=== PATIENT | male | born 1985 | race African-American/Black ===

== ENCOUNTER 2016-12-23 07:45 | Emergency (ER) | payer MEDICAID ==
[~2016-12-23] VITALS: Ht 175.3 cm; Wt 81.0 kg
[2016-12-23 08:03] VITALS: BP 136/65
== END 2016-12-23 08:47 | disposition home or self-care (01) ==
LOC: EMS 07:47
DX: B35.6 Tinea cruris (principal); F17.210 Nicotine dependence, cigarettes, uncomplicated; F19.90 Other psychoactive substance use, unspecified, uncomplicated
CPT/HCPCS: 99283; 99406

== ENCOUNTER 2017-01-19 19:37 | Emergency (ER) | payer MEDICAID ==
[~2017-01-19] VITALS: Ht 175.3 cm; Wt 88.2 kg
[2017-01-19] MEDS ORDERED: IBUPROFEN 800 MG TABLET PO ONE (20:15)
[2017-01-19] MEDS ORDERED: LIDOCAINE HCL BUFFERED 1% W/EPI 1:100,000 20 ML VIAL INJ ONE (20:15)
[2017-01-19] MEDS ORDERED: SULFAMETHOX/TRIMETH DS 800-160 MG/TABLET PO ONE (20:15)
[2017-01-19 21:59] VITALS: BP 118/69
== END 2017-01-19 22:12 | disposition home or self-care (01) ==
LOC: EMS 19:40
DX: L02.421 Furuncle of right axilla (principal); F17.210 Nicotine dependence, cigarettes, uncomplicated
CPT/HCPCS: 10060; 99283; J3490

== ENCOUNTER 2017-05-26 20:44 | Emergency (ER) | payer SELFPAY ==
[~2017-05-26] VITALS: Ht 175.3 cm; Wt 86.0 kg
[2017-05-26] MEDS ORDERED: LIDOCAINE HCL 1% 10 ML VIAL INJ ONE (21:15)
[2017-05-26] MEDS ORDERED: SULFAMETHOX/TRIMETH DS 800-160 MG/TABLET PO ONE (21:15)
[2017-05-26] MEDS ORDERED: IBUPROFEN 800 MG TABLET PO ONE (21:15)
[2017-05-26] MEDS ORDERED: POVIDONE-IODINE 10% 15 ML SOLUTION UD TP ONE (21:15)
[2017-05-26 21:18] VITALS: BP 142/60
== END 2017-05-26 21:48 | disposition home or self-care (01) ==
LOC: EMS 20:44
DX: L02.416 Cutaneous abscess of left lower limb (principal); S70.262A Insect bite (nonvenomous), left hip, initial encounter; F12.90 Cannabis use, unspecified, uncomplicated; F16.90 Hallucinogen use, unspecified, uncomplicated; F17.210 Nicotine dependence, cigarettes, uncomplicated; W57.XXXA Bitten or stung by nonvenomous insect and other nonvenomous arthropods, initial encounter; Y93.89 Activity, other specified; Y92.89 Other specified places as the place of occurrence of the external cause; Y99.8 Other external cause status
CPT/HCPCS: 10060; 99284; J3490

== ENCOUNTER 2017-05-28 15:56 | Emergency (ER) | payer SELFPAY ==
[~2017-05-28] VITALS: Ht 175.3 cm; Wt 92.7 kg
[2017-05-28] MEDS ORDERED: SULF1TAB42 PO (16:04)
[2017-05-28 17:08] VITALS: BP 130/72
== END 2017-05-28 17:10 | disposition home or self-care (01) ==
LOC: EMS 15:56
DX: Z48.00 Encounter for change or removal of nonsurgical wound dressing (principal); F12.90 Cannabis use, unspecified, uncomplicated; F16.90 Hallucinogen use, unspecified, uncomplicated; F17.210 Nicotine dependence, cigarettes, uncomplicated
CPT/HCPCS: 99283